=== PATIENT | female | born 1980 | race African-American/Black ===

== ENCOUNTER 2020-07-26 12:47 | Emergency (ER) | payer OTHER ==
[~2020-07-26] VITALS: Ht 162.6 cm; Wt 99.8 kg
[2020-07-26 13:04] VITALS: BP_SYST 132
--- NOTE | 2020-07-26 13:08 | NUR ---
Patient to ER bed 7 to gown for evaluation. Side rails up. Report given to Paco SPRINGER.
--- NOTE | 2020-07-26 13:20 | NUR ---
Pt came to ER with lump on head she states is 3 years old. Pt states it has recently began to get bigger, cause ECHOLS, and radiate to R eye rates pain 10/10. [facility] at [facility], no distress noted, awaiting
--- NOTE | 2020-07-26 13:30 | NUR ---
ER at bedside examining patient.
--- NOTE | 2020-07-26 14:05 | NUR ---
Patient given written and verbal discharge instructions and verbalizes understanding. ER MD discussed with patient the results and treatment provided. Patient in stable condition. ID arm band removed. Rx of naprosyn and norco given. Patient educated on pain management and to follow up with PMD. Pain Scale 0/10. Opportunity for questions provided and answered. Medication side effect fact sheet provided.
== END 2020-07-26 14:04 | disposition home or self-care (01) ==
LOC: SED 12:47
DX: L72.0 Epidermal cyst (principal)
CPT/HCPCS: 99283